=== PATIENT | female | born 1955 | race Caucasian/White ===

== ENCOUNTER 2023-08-22 16:15 | Emergency (ER) | payer MEDICARE, BC ==
[2023-08-22] MEDS ORDERED: Lidocaine 1% 5 ML VIAL INJECT ONE (16:26)
[2023-08-22] MEDS ORDERED: Bacitracin Oint 1 GM U/D Packet TOP ONE (16:28)
== END 2023-08-22 16:46 | disposition home or self-care (01) ==
LOC: DL.ED 16:15
DX: S61.412A Laceration without foreign body of left hand, initial encounter (principal); Z88.0 Allergy status to penicillin; Z88.1 Allergy status to other antibiotic agents; W01.0XXA Fall on same level from slipping, tripping and stumbling without subsequent striking against object, initial encounter
CPT/HCPCS: 12001; 99282; A9270-GY; J3490